=== PATIENT | male | born 1985 | race Caucasian/White ===

== ENCOUNTER 2017-03-09 11:00 | Inpatient (IN) | payer OTHER ==
[~2017-03-09] VITALS: Ht 167.6 cm; Wt 85.0 kg
--- NOTE | ~2017-03-09 | INDIVTXPL2 ---
"PATIENT: LOREE MARVIN | | [facility] UNIT #: [id number] | [address] AGE/SEX: 31 M : 81 | [address] | [place] [phone] ADMIT/REG DATE: 03/09/17 | [facility] | Individualized Treatment Plan DATE: 03/30/17 Problem Statement/Issue Identified: Client is at risk for relapse. Goal: Client will identify relapse triggers and form personal relapse prevention plan. Objectives/Activities to achieve goal: 1. Complete RELAPSE PREVENTION WORKBOOK and process with counselor and in group as assigned. Due Date: 04/06/17 Complete: Incomplete: 2. Process STINKING THINKING with counselor and in group as assigned. Due Date: 04/06/17 Complete: Incomplete: Client Signature Date Counselor Signaure: Date Outcome/Measurement of Progress Towards Goal: Counselor Signature: Date "
--- NOTE | ~2017-03-09 | INDIVTXPL2 ---
"PATIENT: LOREE MARVIN | | [facility] UNIT #: [id number] | [address] AGE/SEX: 31 M : 81 | [address] | [place] [phone] ADMIT/REG DATE: 03/09/17 | ROOM: [facility] LOC: ADTC | ADTC | Individualized Treatment Plan DATE: 03/16/17 Problem Statement/Issue Identified: Client unresolved grief issues contributes to his/her continued drinking and using. Goal: Client needs to address these grief issues to avoid relapse. Objectives/Activities to achieve goal: 1. Complete A LIFE HAS ENDED, LIVING GOES ON and process with counselor, Due Date: 04/01/17 Complete: Incomplete: Client Signature Date Counselor Signaure: Date Outcome/Measurement of Progress Towards Goal: Counselor Signature: Date "
--- NOTE | ~2017-03-09 | CLPRLASSUM ---
"PATIENT: LOREE MARVIN | | [facility] UNIT #: [id number] | [address] AGE/SEX: 31 M : 81 | [address] | [place] [phone] ADMIT/REG DATE: 03/09/17 | ROOM: [facility] LOC: ADTC | ADTC | Client Problem List/Assessment Summary Date: 03/16/17 Problems identified by the client: relapse, legal issue, lack of using support network, control issue and unresolved grief Problems identified by significant others: same Client's Strengths: can accomplish goals, driven, hard worker, caring and love of family Problem List: Code: T Client continued to use alcohol &/or drugs despite ongoing negative consequences. Code: T Client has learned to deny or stuff feelings; needs to learn to identify and process feelings with safe people to acquire the necessary skills to maintain termite exterminator helper sobriety. Code: T Client needs to identify relapse warning signs and develop a plan to deal with them as they arise. Code: T Client unresolved grief issues contributes to his/her continued drinking and using and needs to address these grief issues to avoid relapse. Code Jaeger: T: to be addressed during course of treatment O: problem noted, expected to resolve itself with abstinence--specific tx plan not required R: problem noted, will be referred upon discharge PRIMARY COUNSELOR: Raquel Sidhu"
--- NOTE | ~2017-03-09 | TXPLANREV ---
"PATIENT: LOREE MARVIN | | [facility] UNIT #: [id number] | [address] AGE/SEX: 31 M : 81 | [address] | [place] [phone] ADMIT/REG DATE: 03/09/17 | ROOM: [facility] LOC: ADTC | ADTC | Treatment Plan/Staffing Review Date: 03/30/17 Treatment plan was reviewed and determined appropriate as written: yes, client is working on feelings letters and grief work. Treatment plan was reviewed and the following changes/addition/deletions are necessary: will add relapse prevention work Discharge plans were reviewed and determined appropriate as previously documented: yes, client will participate in outpatient treatment with close monitoring. If client is struggling in outpatient, he will be referred to sober living at that time. Client has been referred to 12 step meetings and sponsorship. Discharge plans were reviewed and determined to be as follows: Other pertinent issues discussed during this staffing review include: Staff Present: Jessy Tapia, Sandeep Hart, Nikunj Quinn, Zora Malhotra, Jia Ogden, Anna Marie Moralez PRIMARY COUNSELOR: ALEXA Burrows, [facility] Client Signature Counselor Signature Date Time "
--- NOTE | ~2017-03-09 | INDIVTXPL2 ---
"PATIENT: LOREE MARVIN | | [facility] UNIT #: [id number] | [address] AGE/SEX: 31 M : 81 | [address] | [place] [address] ADMIT/REG DATE: 03/09/17 | ROOM: [facility] LOC: ADTC | ADTC | Individualized Treatment Plan DATE: 03/16/17 Problem Statement/Issue Identified: Client has learned to deny or stuff feelings which may lead to relapse. Goal: Client needs to learn to identify and process feelings with safe people to acquire the necessary skills to maintain fpc sobriety. Objectives/Activities to achieve goal: 1. Complete SIGNIFICANT EVENT FORMS on a daily basis and process with counselor as needed. Due Date: 04/06/17 Complete: Incomplete: 2. Write feelings letters as assigned and process with counselor and in family group. Due Date: 04/04/17 Complete: Incomplete: 3. Complete FEELINGS workbook and process with counselor and in group as assigned. Due Date: 03/30/17 Complete: Incomplete: Client Signature Date Counselor Signaure: Date Outcome/Measurement of Progress Towards Goal: Counselor Signature: Date "
--- NOTE | ~2017-03-09 | RESCARESUM ---
"PATIENT: LOREE MARVIN | | [facility] UNIT #: [id number] | [address] AGE/SEX: 31 M : 81 | [address] | [place] [phone] ADMIT/REG DATE: 03/09/17 | ROOM: [facility] LOC: ADTC | ADT | Summary of Residential Care Primary Counselor: Raquel LIU,[facility] Date of Admission: 03/09/17 Date of Discharge: 04/06/17 Referral Source: Yanelis Colon, Ring Spinner Jacinta Davis, [facility], [facility], [facility], [facility] Primary Care Provider Prior to Admission: Dr. 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 Jacobs: chemical induced mood disorder, bipolar disorder by history and elevated blood pressure without prior diagnosis of hypertension Discharge Diagnosis: same Goals Achieved: Client verbalized increased awareness of the severity of his substance use disorder. He practiced identifying and expressing feelings appropriately. Client worked on grief issues, He identified relapse triggers and formed personal relapse prevention plan. Continued Obstacles to Sobriety/Relapse Issues: complacency, over-confident, stinking thinking, not following aftercare plan, old people/places/things and/or not dealing with feelings appropriately . Family Issues Addressed: Client participated in family work alone as family did not attend. Y Individual Therapy Y Group Therapy Y Educational Series on Substance Abuse N Parents/Significant Others Attended Family Program N Acute Medical Problems During the Course of Treatment N Transferred to Hospital During the Course of Treatment Y Accepting of Substance Abuse Problem N Non-accepting of Substance Abuse Problem N Required Psychological or Psychiatric Consultation During the Course of Treatment Completed AA Step # 1 During This Level of Care Significant Incidences During Treatment: Client did serve as client technical support associate and was able to provide positive role model for peers. Reason For Discharge: X Completed Residential [place] Goals and Ready For Next Level of Care Continuing Care Plan/Recommendations: PATIENT: LOREE MARVIN | | [facility] UNIT #: [id number] | [address] AGE/SEX: 31 M : 81 | [address] | [place] [address] ADMIT/REG DATE: 03/09/17 | ROOM: [facility] LOC: [facility] | [facility] | Summary of Residential Care Intensive Partial Care X Sponsor Partial Care X AA Meetings/NA Meetings X Outpatient Co-dependency Services Therapeutic Community (IF NEEDED) [address] [place] [facility] Mental Health Therapy Marriage Counseling Other Specific Continuing Care Plan: Client will participate in outpatient treatment at [facility] per his request. He will attend weekly outpatient group and individual sessions as scheduled. Client has been referred to 12 step meetings and sponsorship. If client is unable to remain abstinent in an outpatient setting, he will likely need to be referred to sober living such as [place] or [address] at that time. PRIMARY COUNSELOR: Raquel Sidhu, ALEXA, LADC"
--- NOTE | ~2017-03-09 | INDIVTXPL2 ---
"PATIENT: LOREE MARVIN | | [facility] UNIT #: [id number] | [address] AGE/SEX: 31 M : 81 | [address] | [place] [address] ADMIT/REG DATE: 03/09/17 | ROOM: [facility] LOC: ADTC | ADTC | Individualized Treatment Plan DATE: 03/16/17 Problem Statement/Issue Identified: Client continued to use alcohol &/or drugs despite ongoing negative consequences. Goal: Client will identify self-defeating behaviors in order to make better choices in recovery. Objectives/Activities to achieve goal: 1. Complete HOW TO GET STARTED IN TREATMENT and process with counselor and in group as assigned. Due Date: 03/17/17 Complete: Incomplete: 2. Complete step 1 assignment to identify powerlessness and unmanagability and process with counselor. Share in group 15 examples of how betrayed values (pg. 10) and 10 examples of effects on others (pg. 11). Due Date: 03/24/17 Complete: Incomplete: 3. Read the first 164 pages of ALCOHOLICS ANONYMOUS and process with counselor. Due Date: 04/06/17 Complete: Incomplete: Client Signature Date Counselor Signaure: Date Outcome/Measurement of Progress Towards Goal: Counselor Signature: Date "
--- NOTE | ~2017-03-09 | TXPLANREV ---
"PATIENT: LOREE MARVIN | | [facility] UNIT #: [id number] | [address] AGE/SEX: 31 M : 81 | [address] | [place] [phone] ADMIT/REG DATE: 03/09/17 | ROOM: [facility] LOC: ADTC | ADTC | Treatment Plan/Staffing Review Date: 03/23/17 Treatment plan was reviewed and determined appropriate as written: yes, client is working on step 1, feelings letters and grief. Treatment plan was reviewed and the following changes/addition/deletions are necessary: n/a Discharge plans were reviewed and determined appropriate as previously documented: see below Discharge plans were reviewed and determined to be as follows: Recommendations on intake assessment are for sober living following residential treatment. Client has indicated he bought a house however intake notes that he is renting an apartment. 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 Other pertinent issues discussed during this staffing review include: Staff Present: Padmini Dee, Zora Malhotra, Jia Ogden, Verena Malhotra, Michelle Mooney, Anna Marie Moralez PRIMARY COUNSELOR: ALEXA Burrows, [facility] Client Signature Counselor Signature Date Time "
--- NOTE | 2017-03-09 14:10 | NUR ---
ADMISSION NOTE Rights/Responsibilities: Copy given and explained to client. Signed and accepted by client. Client oriented to physical lay out of the ADTC unit, given Big Book and admission packet. A Torito was assigned. Willam Client is a 31yr old single male. Reffered by probation. Brought to tx by friend. Lives in [place] No family participation at this time. DOC, alcohol, last used 01/26/17, 1/ 750L daily. Allergies: Penicline, Meds: Risperdone. Initial paperwork given and guidelines gone over. Doctor has been notified. Was searched no contraband found.
--- NOTE | 2017-03-09 15:00 | NUR ---
IS 1 HR. Client was oriented to treamtent process. He is working on BPSA. He shared that he knows he needs treatment. Client is reffered by probation. 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 Client shared concerns as he has joint custody of his daughter. He belives daughter's mom or his parents will help to cooridinate visits while he his here. He was allowed to make brief call to brother who will be in town this weekend from out of state to advise him of visiting hours. Client was directed to work on HOW TO GET STARTED IN TREATMENT and the big book after completion of BPSA.
--- NOTE | 2017-03-09 18:35 | NUR ---
Education: 1 hour lecture on self esteem given by counselor
--- NOTE | 2017-03-09 22:52 | NUR ---
Client did beads for rec and attended N.A.Meeting. SE: Being here and getting to know new people
--- NOTE | 2017-03-10 04:01 | NUR ---
Bed note: client was in bed with eyes closed and no distress at all bed checks.
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
--- NOTE | 2017-03-10 11:25 | NUR ---
AM GRP 1.5 HRS, Ratio 1:10/ Clt sat mostly quiet, as it was his first grp. He did hear grp rules.
--- NOTE | 2017-03-10 15:29 | NUR ---
Tech Note: Client participated in Spiritual Enrichment in the morning and went for an outdoor walk after lunch. Client stated that he is working on reading the Big Book.
--- NOTE | 2017-03-10 16:10 | NUR ---
Step ed. 1 hr/ focus was on step one and powerlessness. Each person answered a set of questions on paper and then we discussed out loud. This client participated.
--- NOTE | 2017-03-10 16:17 | NUR ---
Education 1 Hour: Client heard a presentation on cross addiction.
--- NOTE | 2017-03-10 23:14 | NUR ---
TECH NOTE: Client did newcommer bookmarks for REC, participated in guided meditation, and attended AA meeting. SE: all day
--- NOTE | 2017-03-11 01:21 | NUR ---
1 HR EDUCATION: Client watched a video "Say Yes to Life" by Father Festus Henson
--- NOTE | 2017-03-11 04:43 | NUR ---
Bed Note: CLt lay motionless in bed with eyes closed showing no distress at all bed checks.
--- NOTE | 2017-03-11 11:30 | NUR ---
GROUP 1.5 HRS. 1:10 Clients participated in orienting new peers to purpose and rules of group. Discussion included consequences of addiction including the effects on family and loved ones as well as feelings and acceptance.
--- NOTE | 2017-03-11 14:38 | NUR ---
IS .5 HRS. Client discussed visitor's list. He was given step 1 to begin after he completed HOW TO GET STARTED IN TREATMENT. Client reports he is settling in well to treatment. He appears to have positive attitude and was encouraged to continue to be open, honest and willing.
--- NOTE | 2017-03-11 14:48 | NUR ---
PEER REVIEWS 1.5 HRS: Clt participated in peer review process and took a risk to give open and honest feedback.
--- NOTE | 2017-03-11 14:58 | NUR ---
FAMILY CONTACT Spoke with client's girlfriend and obtained her address in order to send out family information. She was advised of visiting hours thise weekend and allowed to speak with client briefly about visitation with his daughter.
--- NOTE | 2017-03-11 15:08 | NUR ---
FAMILY CONTACT Left msg. for client's parents about family work.
--- NOTE | 2017-03-11 16:29 | NUR ---
Tech Note: Clt watched "Relapse" for afternoon video. Clt is finishing up Getting Started and starting Step 1.
--- NOTE | 2017-03-11 22:49 | NUR ---
Tech note: Client watched tv and movies.
--- NOTE | 2017-03-12 05:24 | NUR ---
Bed note : Client was in bed motionless with eyes close at all bed checks.
--- NOTE | 2017-03-12 15:42 | NUR ---
Tech Note: Client attended A.A.Meeting at [facility] and [place] and then helped with the clubhouse cleaning, ate lunch, and listened to a speaker. Client is working on Step1
--- NOTE | 2017-03-12 20:49 | NUR ---
tech note: Client played a game for recreation & attended offsite AA meeting.Client watched tv. SE: AA meeting.
--- NOTE | 2017-03-13 05:26 | NUR ---
Bed note: Client was in bed motionless with eyes closed at all bed checks.
--- NOTE | 2017-03-13 16:21 | NUR ---
TECH NOTE: Client participated in Chapter 5 of Big Book study, attended study time, and watched tv/movies. Had visitors
--- NOTE | 2017-03-13 23:43 | NUR ---
tech note: client attended AA Panel & ALCOHOL STILL OPERATOR meeting. Client participated in Community Clean. SE: visit with brother.
--- NOTE | 2017-03-14 04:40 | NUR ---
Bed Note: Clt lay motionless in bed with eyes closed showing no distress at first and second bed checks. The third bed check clt looked at tech.
--- NOTE | 2017-03-14 11:15 | NUR ---
Tech notes: Client is working on Step 1
--- NOTE | 2017-03-14 11:30 | NUR ---
GROUP 1.5 HR/ 9:1 Clients all heard peers share packets/shame booklet and this client related to having a great support system in AA community but when he wanted to relapse he wouldn't answer door or phone, didn't call before drank. He shared about struggle with sisters . He misses his daughter who is very close to him and the 1 night he gets visits is an AA night, he knows he needs to get interlock on his car so he can drive to out of town meetings.
--- NOTE | 2017-03-14 15:41 | NUR ---
Education note: Client attended speaker for education, Deonna on Tobacco
--- NOTE | 2017-03-14 16:00 | NUR ---
Recovery 101 1 hr/ Clients all participated in reading, highlighting and discussing the Big Book on areas about honest, acceptance, living in problem vs living in solution, resentments, 1/2 measures, and the 12 promises.
--- NOTE | 2017-03-14 22:30 | NUR ---
Tech note : Client went on a walk for rec and attended an onsite NA meeting. SE; All day
--- NOTE | 2017-03-15 04:17 | NUR ---
Bed note: Client was in bed with eyes closed and no distress at all bed checks.
--- NOTE | 2017-03-15 09:53 | NUR ---
IS 1 HR. Client processed from his HOW TO GET STARTED IN TREATMENT. He shared that there have been 3 deaths of loved ones in last 6 mos. including his 37 yr. old sister, a mentor and his daughter's grandma. Client reports 3 of his 6 failed breath tests on probation were after those deaths. He also shared about his mom. He reports mom was drug addict and parents when he was 7 and dad got custody of the 3 kids. Client's sister had a different mom but he notes that his mom also approx. age 37-38 with similar circumstances. Client indicates he has issues with mom and shared about the last time that he spoke with her when he was released from [employer]. Client was given A LIFE HAS ENDED, LIVING GOES ON and instructed to do for all 4 deaths. He will also begin feelings letters to dad, brother, S/O and 4 yr. old daughter. He appears positive and willing at this time.
--- NOTE | 2017-03-15 09:59 | NUR ---
Returned call to client's PO, Yanelis Colon, and left voicemail.
--- NOTE | 2017-03-15 11:30 | NUR ---
GROUP 1.5 HRS. 1:9 Clients participated in orienting new peer to purpose and rules. Discussion included discharge plans and the importance of aftercare plan. Client processed HOW TO GET STARTED IN TREATMENT assignment including his chemical history and the consequences as well as his commitment to recovery.
--- NOTE | 2017-03-15 12:54 | NUR ---
FAMILY CONTACT Left msg. for client's S/O. Spoke with client's dad who advised he will look at his schedule and hopefully attend. Dad reports that in addition to client's mom having drug addiction, he also drinks and client's grandfather of cirrhosis of the liver due to his drinking.
--- NOTE | 2017-03-15 13:24 | NUR ---
Tech Note: Client participated in an outdoor walk in the afternoon. Client followed programming.
--- NOTE | 2017-03-15 13:36 | NUR ---
Education One Hour: Client heard a presentation on Sexually Transmitted Disease.
--- NOTE | 2017-03-15 16:04 | NUR ---
Relapse Prevention Education, 1.0 hours, Client attended and actively participated in relapse prevention education which focused on a Relapse Prevention Quiz and discussion over the answers.
--- NOTE | 2017-03-15 20:30 | NUR ---
education note: 1 hour lecture by counselor on" what yan are you willing to pay"
--- NOTE | 2017-03-15 21:17 | NUR ---
med note: client complained of head ache pain level 7.motrin given
--- NOTE | 2017-03-15 22:53 | NUR ---
Tech note: Client attended the Alumni meeting, participated in guided meditation and attended an onsite AA meeting. SE; Meeting with counselor
--- NOTE | 2017-03-16 04:57 | NUR ---
Bed note: Client was in bed with eyes closed and motionless at all bed checks
--- NOTE | 2017-03-16 10:40 | NUR ---
Tech notes: Client is working on Grief pkt
--- NOTE | 2017-03-16 11:30 | NUR ---
GROUP 1.5 HRS. 1:11 Discussion included the need for appropriate boundaries on the unit and working towards recovery/new behaviors, not addiction/old behaviors. Clients also discussed the effects on addiction as peers had parents that were addicts and then became the parent who addiction effected their own kids. This client questioned why there is only one good feeling and discussed behaviors are what are good or bad.
--- NOTE | 2017-03-16 12:37 | NUR ---
Education note: Client had education by [facility]
--- NOTE | 2017-03-16 17:06 | NUR ---
IS 1 HR. Client participated in forming individualized treatment plans. He processed the rest of his HOW TO GET STARTED IN TREATMENT and discussed assertiveness, self-centeredness and feelings wenceslao. fear. Client reports the medication he is taking works for him but he was concerned about taking medication. He shared family history of mental health issues including bi-polar and schizophrenia. Client shared that his ex (daughter's mom) identified pattern of not sleeping and being anxious prior to each drinking binge. Client stated he was unaware of this pattern but identified himself as dry drunk prior to treatment. He admits that daughter was effected and would ask why he was mad or sad.
--- NOTE | 2017-03-16 17:21 | NUR ---
SPIRITUAL EDUCATION 1 HR. Todays topics were orienting newcomers, and taking a look at Wing Wong's 5 SECRETS TO SUCCESS which include a look at the miracles of the human body as blessings.
--- NOTE | 2017-03-16 20:57 | NUR ---
education: 1 hour video on unresolved anger and group discussion with counselor
--- NOTE | 2017-03-16 22:13 | NUR ---
Tech note: Client worked on beaded project and attended an onsite NA meeting. SE; Meeting with counselor
--- NOTE | 2017-03-17 04:03 | NUR ---
Bed note: Client was in bed with eyes closed and no distress at all bed checks.
--- NOTE | 2017-03-17 10:30 | NUR ---
Tech Note: Client participated in Spiritual Enrichment. Client stated that he is working on "Feelings," "Grief," and writing Feelings Letters.
--- NOTE | 2017-03-17 12:56 | NUR ---
Group 1.5 Hr Ratio 1:10/Topics today were a relapse prevention, a feelings letter, a getting started and two step one's. Client shared what he could relate to about triggers they had.
--- NOTE | 2017-03-17 13:40 | NUR ---
Education 1 Hour: Client heard a presentation from a member of the recovery community who shared his experience, strength and hope.
--- NOTE | 2017-03-17 16:30 | NUR ---
step education 1 hr/ Focus was on step 2, handed out some questions they completed on paper and then opened it up for discussion. This client participated.
--- NOTE | 2017-03-17 23:49 | NUR ---
Tech Note: Client attended Guided Meditation and A.A.Meeting. SE: A.A.Meeting
--- NOTE | 2017-03-18 04:26 | NUR ---
Eduction: 1 Hour. Client attended "Unresolved Anger" video & discussion presented by staff.
--- NOTE | 2017-03-18 11:57 | NUR ---
Group 1.5 Hr Ratio 1:9/Topics today were two getting started packets, forgiveness and dealing with bad childhoods. Client shared how he could relate and he wishes he could tell his mom bluntly how he feels but is appeared he wants to hurt her more than forgive her.
--- NOTE | 2017-03-18 13:00 | NUR ---
PEER REVIEWS 1.5 HRS: Clt participated in peer review process and was able to give open and honest feedback to those receiving a review.
--- NOTE | 2017-03-18 16:24 | NUR ---
Tech Note: Client participated in group walk for exercise and watched "Recovery Issues Part 3" for afternoon video. Client is working on Feelings Letters.
--- NOTE | 2017-03-18 22:50 | NUR ---
TECH NOTE: Client participated in reading guidelines and watched tv/movies. SE: that it's Tuesday
--- NOTE | 2017-03-19 04:12 | NUR ---
Bed Note: Clt lay motionless in bed with eyes closed showing no distress at all bed checks.
--- NOTE | 2017-03-19 16:05 | NUR ---
Tech Note: Client attended NA Panel and is working on Feelings Letters and Grief Packet.
--- NOTE | 2017-03-19 20:28 | NUR ---
Tech note: Clt played a game for recreation and attended offsite AA mtg. Watched tv and used phone. SE was phone calls
--- NOTE | 2017-03-20 04:38 | NUR ---
Bed Note: Clt lay motionless in bed with eyes closed showing no distress at all bed checks.
--- NOTE | 2017-03-20 15:55 | NUR ---
Tech Note: Client participated in Big Book Study. Client stated that he is working on, "Grief" and writing Feelings Letters. CLient received a visitor.
--- NOTE | 2017-03-20 22:50 | NUR ---
Tech Note: Clt attended AA panel, [employer] SW[employer]SEM[employer]ER mtg, used phone and watched tv. SE was visit
--- NOTE | 2017-03-21 04:40 | NUR ---
Bed Note: Clt lay motionless in bed with eyes closed showing no distress at all bed checks.
--- NOTE | 2017-03-21 10:17 | NUR ---
Tech notes: Client is working on Grief Pkt and Fl's
--- NOTE | 2017-03-21 11:30 | NUR ---
Morning Group, 11/23 ration, 1.5 hours, Client attended and actively participated in group discussion. Client talked about this being a selfish program but then were asked to help others out. He was frustrated with another client and his arrogance.
--- NOTE | 2017-03-21 13:31 | NUR ---
Education: Client attended education by Padmini on Infection prevention.
--- NOTE | 2017-03-21 16:00 | NUR ---
Recovery 101 1 hr/ Clients all were asked to share what they worked on in treatment or past treatments that really helped them and/or their experience with working an AA/NA program of recovery-what went well. This client was attentive, got names to call & great sponsor in past. Now he wants to learn to be himself.
--- NOTE | 2017-03-21 18:12 | NUR ---
Education: 1 Hour. Client attended "Adult Children of Alcoholics" lecture presented by staff.
--- NOTE | 2017-03-21 23:36 | NUR ---
tech note: Client played a game for recreation & chaired onsite NA meeting. Client was redirected for his language. SE: chairing the NA meeting.
--- NOTE | 2017-03-22 04:32 | NUR ---
BED NOTE: Client was in bed, motionless with eyes closed all three bed checks.
--- NOTE | 2017-03-22 10:00 | NUR ---
IS 1 HR. Client shared about chairing the meeting last night. He is confronted on over-confidence as he voices his plan to stay sober and has had little or no cravings while here. He identified that this is a safe place. He processed from his grief packet and processed the letter to his sister who the end of November of this year. He continues to work on letters to his mentor and his daughter's grandma. Client is also working on FEELINGS workbook and related to the self-talk exercise. y
--- NOTE | 2017-03-22 11:30 | NUR ---
GROUP 1.5 HRS. 1:9 Client participated in orienting new peer to purpose and rules of group. Group discussion included anger and frustration at peer's disrespect and immaturity. The peer was in the other group so clients were redirected at what they can do to be a part of the solution, not part of the problem. This client shared that he handled situation better with peer than he would have in the past. He also owned that he may have been sarastic with that peer about him being late again. Discussed assertive ways to confront peers with care.
--- NOTE | 2017-03-22 15:30 | NUR ---
FAMILY CONTACT Spoke with client's dad again to clarify as he told client he would attend on Tuesday. Previously discussed family work scheduled and reminded him of such. He is uncertain if they will be able to attend on a or a Tuesday.
--- NOTE | 2017-03-22 16:00 | NUR ---
Relapse Prevention, 1.0 hours, Client attended and actively participated in relapse prevention education which focused on internal and external triggers.
--- NOTE | 2017-03-22 16:38 | NUR ---
Tech Note: Client participated in Nutritional Services presentation and is working on Feeling Letters and a Grief Packet.
--- NOTE | 2017-03-22 22:43 | NUR ---
Education: 1 hour lecture given by counselor on co-dependency
--- NOTE | 2017-03-22 22:53 | NUR ---
Tech note: clients played catchphrase for rec, participated in guided meditation and attended AA meeting SE:waking up
--- NOTE | 2017-03-23 04:37 | NUR ---
bed note: client was in bed with eyes closed and motionless at all bed checks.
--- NOTE | 2017-03-23 09:54 | NUR ---
Tech notes: Client is working on Fl's
--- NOTE | 2017-03-23 11:30 | NUR ---
GROUP 1.5 HRS. 1:12 Clients participated in orienting new peer to purpose and rules of group. Discussion included healthy coping skills to deal with stress and feelings. This client processed from his step 1 assignment identifying how he betrayed his values in his addiction. Many of his values involved effect on others as well. He did a good job of owning his behaviors.
--- NOTE | 2017-03-23 13:15 | NUR ---
Education note: Client attended educational speaker Colin Magana
--- NOTE | 2017-03-23 15:00 | NUR ---
IS 1 HR. Client was confronted on lack of feelings on SEF yesterday when he had lots of feelings about an incident with peer in the AM. Client stated he thinks his feelings don't matter because he did not see anything happen to peer following that incident. He was advised that due to confidentiality he will not know everything about peers and their treatment issues. He was advised of recommendations from intake assessment that stated "sober living environment". Client became very upset and awfulized the effects of not returing home. He was encouraged to journal feelings and use God box. Message left with his PO to discuss intake recommendations as client was not aware of sober living.
--- NOTE | 2017-03-23 15:49 | NUR ---
CASE MANAGEMENT: Spoke with Jacinta Lundberg who completed intake assessment. She clarified that she did not recommend sober living house but sober living environment and is willing to work with him in outpatient. She did express concerns that it is suspected that client was drinking on daily basis and drinking with his boss.
--- NOTE | 2017-03-23 16:00 | NUR ---
COUNSELOR NOTE Client was advised of contact with intake assessment and the clarification of the recommendations as well as her concerns that client is drinking more frequently and drinking with his boss, which he denies. He was very relieved that outpatient is acceptable recommendation.
--- NOTE | 2017-03-23 17:31 | NUR ---
SPIRITUAL EDUCATION 1 HR. Today we used music to invoke discussion, symbolize how it can be either positive spirituality or negative spirituality, and discussed the feelings. We used one song that depicted addiction, one that talked about recovery, and since we are close to Mother's Day, one that depicted addiction in parents and forgiveness.
--- NOTE | 2017-03-23 18:18 | NUR ---
Education: 1 Hour. Client attended "Boudaries" lecture given by staff.
--- NOTE | 2017-03-23 20:06 | NUR ---
Relapse Prevention, 1.0 hours, Client attended and actively participated in relapse prevention education which focused on internal and external triggers.
--- NOTE | 2017-03-23 22:57 | NUR ---
Tech Note: Client played a game for rec, and attended The on unit N.A.Meeting. SE: Counselor session
--- NOTE | 2017-03-24 04:30 | NUR ---
Bed Note: Client was in bed with eyes closed and motionless at all bed checks.
--- NOTE | 2017-03-24 12:42 | NUR ---
Group 1.5 Hr Ratio 1:9/Topics today were a collage, two step ones, a getting startred and feelings letters. Client was very quiet but did appear to bepaying attention.
--- NOTE | 2017-03-24 15:45 | NUR ---
step education 1 hr/ Focus was on step 3 of the 12 steps Made a decision to turn our will and lives over to God. Each person were given questions to answer on paper and then to share and discuss. This client participated and commented that he really liked this exercise and how unique everyones answers were.
--- NOTE | 2017-03-24 18:17 | NUR ---
Education 1HR: Clt watched video called "Predator part 1" by Nael Reeves with staff present.
--- NOTE | 2017-03-24 23:11 | NUR ---
Tech Note: Client took a walk for rec and attended the A.A.Meeting. SE: 60 Day chip
--- NOTE | 2017-03-24 23:24 | NUR ---
1:00 pm. Education Note: Client watched video "Inside the Addictive Personality"
--- NOTE | 2017-03-25 04:09 | NUR ---
Bed Note: Client was in bed and motionless at all bed checks.
--- NOTE | 2017-03-25 11:30 | NUR ---
Group 1.5 hr/ 11:1 Clients all involved in discussions about addiction and recovery. THis client was very involved and gave good feedback, related well.
--- NOTE | 2017-03-25 14:36 | NUR ---
PEER REVIEWS 1.5 HRS: Clt participated in peer review process and was able to give open and honest feedback to those receiving a review. Client also received his own peer review and heard he jokes a lot, glorifies a lot, hides with humor, bottles up stuff, is frustrated and angry, lives behind bull shit, and does not deal with his issues. Client agreed and said he can change but it is going to take some time.
--- NOTE | 2017-03-25 15:41 | NUR ---
Tech Note: Client participated in group walk and watched "Marijuana" by Nael Reeves. Assignment being worked on is Feelings Letters.
--- NOTE | 2017-03-25 23:23 | NUR ---
Tech note: Client played games and watched movies. Client walked to an offsite AA meeting.
--- NOTE | 2017-03-26 04:02 | NUR ---
Bed note: Client was in bed with eyes closed and no distress at all bed checks
--- NOTE | 2017-03-26 16:53 | NUR ---
Tech Note: Client went to A.A.Meeting at [address]. Also had visit and went on a walk Client is working on ME's
--- NOTE | 2017-03-26 22:14 | NUR ---
Tech note: Client's were just starting to grill around 6pm so we did not have rec this evening. Client walked to an offsite AA meeting, played games and watched movies. SE; Family
--- NOTE | 2017-03-26 22:30 | NUR ---
tech note: client c/o level 7 headache @ 4562,motrin 400 mg was given.
--- NOTE | 2017-03-27 04:46 | NUR ---
tech note: client was motionless in no distress at all bed checks.
--- NOTE | 2017-03-27 17:41 | NUR ---
Tech Note: Client participated in Big Book study. Client stated that he is working on, "Feelings" and writing feelings letters. Client went on an optional outdoor walk.
--- NOTE | 2017-03-27 23:31 | NUR ---
tech note: Client participated in community clean & attended CHECK AND TRANSFER BEADER meeting.Client talked on the phone. SE: STEPHANY Study.
--- NOTE | 2017-03-28 04:25 | NUR ---
tech note: client was motionless in no distress at all bed checks.
--- NOTE | 2017-03-28 13:19 | NUR ---
Experiential Group 1.5 hr/ Clients all participated in looking at family dynamics and feelings through sculpturing and participated with feedback, relating and/or role-playing. This client volunteered to do his family at age 13 before started using. He was strongly committed to Wrestling so never used up to age 14, graduated HS, and loved wrestling plus taught his younger brother everything he knew. Client admired and respected his father, mom left them when he was age 5 as baby brother was born with drugs in his system and mom refused to get clean/but dad was clean and got to keep and raise his kids. Dad needed help and client took over many household responsibilities. His older sister was from another mother and didn't move in with them until she was 14, so not as close but got along, did her homework for her for money. He doesn't report any unresolved feelings with his mother, she , she was never there, she lived close to his [facility], [place] [employer] [facility] and said she would come but no showed (he was there 7 days). Client openly admits it hurt him that mom was never there for him. He wrote vent letter to his mom, he refers to her as toxic, while at a 1 year treatment program and burned it. Client says his biggest issue is he saw his dad grieve all his life over the marital breakup with his mom and he said commitment of marriage scares him, he wants to make sure a woman is 100% committed. He said due to his upbringing he has great work ethics and keeps a clean house. He does regret that his biomom never met her only grandchild. He said a lightbulb went off with sculpture seeing that he did hurt his dad and step-mom and brother with his alcoholism which he was too selfish to see before.
--- NOTE | 2017-03-28 16:14 | NUR ---
RECOVERY 101 1 HR/ Clients all filled out 30 question sheet on consequences of their use, looking at every chemical they have used to help see powerlessness and not minimize any chemicals they have abused. Clients learned about early stages and definition of addiction. This client was involved and shared openly.
--- NOTE | 2017-03-28 17:49 | NUR ---
Tech Note: Client went for an outdoor walk in the afternoon. Client stated that he is working on, "Feelings" and writing feelings letters.
--- NOTE | 2017-03-28 20:49 | NUR ---
Education 1 HR: Clt listened to lecture given by counselor on communication.
--- NOTE | 2017-03-28 23:13 | NUR ---
Client played a game for rec and attended on site N.A.Meeting SE: Tamy
--- NOTE | 2017-03-29 04:58 | NUR ---
Bed Note: Client was in bed and motionless at all bed checks
--- NOTE | 2017-03-29 09:05 | NUR ---
IS 1 HR. Client reports he had a good weekend. Discussed more about discharge plan and he indicates he wants to come to [facility] for mtgs. and possibly group. Client processed grief letters to his mentor and his daughter's grandma. He did a good job and shed a few tears. Client admits he has put off the letter to his mom. Discussed how grief is different as the other 3 he processed were positive relationships and his relationship with mom was not good. Discussed how he can now see that he and his mom had the same disease. Client stated he does not think his dad and stepmom will be able to come to family so he will attend alone this Thurs. and Mon. prior to discharge.
--- NOTE | 2017-03-29 11:41 | NUR ---
GROUP 1.5 HRS. 1:11 Client participated in orienting new peer to purpose and rules of group. Group discussion included the progression of the addiction and the effects on family and lives including suicide attempts. Peer processed goodbye letter to addiction and discussed the need to end the relationship. This client offered personal and insightful feedback.
--- NOTE | 2017-03-29 15:18 | NUR ---
Tech Note: Client joined group for afternoon walk, listened to speaker from the [facility] [place] and is working on Grievance Pkt and Feelings Letters.
--- NOTE | 2017-03-29 16:06 | NUR ---
Tech Note: Client attended Relapse Prevention education with Anna Marie.
--- NOTE | 2017-03-29 19:55 | NUR ---
Education: 1 hour lecture on STD/AID/HIV gijacoby by [facility].
--- NOTE | 2017-03-29 22:35 | NUR ---
Tech note : Client worked on [employer] crafts and get well cards. Client participated in guided meditation and went to an onsite AA meeting.
--- NOTE | 2017-03-30 04:16 | NUR ---
Bed note: Client was in bed with eyes closed and no distress at all bed checks
--- NOTE | 2017-03-30 11:15 | NUR ---
Tech Note: Client is working on a [place] Packet.
--- NOTE | 2017-03-30 11:30 | NUR ---
GROUP 1.5 HRS. 1:10 Group discussion included issues and conflict between peers on the unit. Peers also processed HOW TO GET STARTED IN TREATMENT and step 1 assignment identifying how values are betrayed in addiction. This client was active in group and offered appropriate feedback.
--- NOTE | 2017-03-30 13:19 | NUR ---
Tech Note: Client walked in the hallways for afternoon exercise.
--- NOTE | 2017-03-30 13:23 | NUR ---
Education One Hour: Client heard from members of the recovery community, who shared their experience, strength and hope.
--- NOTE | 2017-03-30 17:24 | NUR ---
SPIRITUAL EDUCATION 1 HR. Topics today were orienting newcomers and then broke into groups and did presentations on their sections from TOWARDS SPIRITUALITY.
--- NOTE | 2017-03-30 18:47 | NUR ---
Education: 1 hour lecture given by counselor on "Disease concept".
--- NOTE | 2017-03-30 22:32 | NUR ---
Tech note: Client played catch phrase for rec and attended an onsite NA meeting. SE: NA
--- NOTE | 2017-03-31 05:00 | NUR ---
Bed note: Client was in bed with eyes closed and no distress at all bed checks.
--- NOTE | 2017-03-31 10:46 | NUR ---
Tech Note; Client participated in light stretching for morning exercise. Client stated that he is working on, "Feelings" and "Relapse Prevention."
--- NOTE | 2017-03-31 11:30 | NUR ---
AM GRP 1.5 HRS, Ratio 1:12/ Clt participated in grp discussion on various topics, including having fun in recovery, how addiction hurts everyone around them, and what to do just to stay in recovery. This clt participated, and stated he knows this is his last time at trying to make recovery work. He stated drinking has taken over so many times, next time it will probably kill him.
--- NOTE | 2017-03-31 16:21 | NUR ---
Education 1 Hour: Client heard from two members of the recovery community, who shared their experience strength and hope.
--- NOTE | 2017-03-31 16:48 | NUR ---
FAMILY EDUCATION 3 HRS. Client attended alone and took part in the discussion on the disease concept. Client shared chemical history and the consequences.
--- NOTE | 2017-03-31 20:25 | NUR ---
Education: 1 Hour. Client attended Andres Verma "Unhealthy Families" video.
--- NOTE | 2017-03-31 23:01 | NUR ---
Client went on a walk for rec, participated in guided meditation, and attended the on unit A.A.Meeting. SE: Family
--- NOTE | 2017-04-01 05:36 | NUR ---
tech note: client was motionless in no distress at all bed checks.
--- NOTE | 2017-04-01 14:49 | NUR ---
Tech Note: Client joined our group walk for exercise. Watched video titled "Sound of Silence" and is working on Relapse Prevention, Raymundo Thinkin and Feelings Letters.
--- NOTE | 2017-04-01 15:42 | NUR ---
PEER REVIEWS 1.25 HRS: Clt participated in peer reviews and took a risk to give open and honest feedback to those receiving a review.
--- NOTE | 2017-04-01 20:30 | NUR ---
TECH NOTE: Client participated in reading of guidelines, watched TV/movies and attended optional offsite AA meeting SE: last weekend here
--- NOTE | 2017-04-02 04:32 | NUR ---
BED NOTE: Client was in bed, motionless with eyes closed all bed checks.
--- NOTE | 2017-04-02 16:20 | NUR ---
Tech Note: Client is working on Relapse Prevention.
--- NOTE | 2017-04-02 20:25 | NUR ---
Tech note: Clt played a game for recreation and attended offsite AA mtg. Clt played cards, used phone and watched tv. SE was lucy
--- NOTE | 2017-04-03 04:26 | NUR ---
BED NOTE: Client was in bed motionless with eyes closed all three bed checks.
--- NOTE | 2017-04-03 15:54 | NUR ---
Tech Note: Client participated in Big Book study. Client stated that he is working on, "Relapse Prevention" and writing feelings letters.
--- NOTE | 2017-04-03 23:06 | NUR ---
Tech Note: Client attended the A.A.Panel with Naman Hart SE: Big Book Study
--- NOTE | 2017-04-04 04:38 | NUR ---
Bed Note: Client was laying in bed and motionless at all bed checks.
--- NOTE | 2017-04-04 09:49 | NUR ---
Tech note: Client is working on [employer]
--- NOTE | 2017-04-04 11:30 | NUR ---
PEER REVIEW 1.5 hr/ Clients had 4 peer reviews and this client gave good feedback.
--- NOTE | 2017-04-04 12:56 | NUR ---
Education Note: Clients attended speaker for education Kit J.
--- NOTE | 2017-04-04 18:20 | NUR ---
Education: 1 Hour. Client attended "Feelings" lecture presented by staff.
--- NOTE | 2017-04-04 21:00 | NUR ---
FAMILY EDUCATION 3 HRS., FAMILY GROUP 2 HRS. 1:8 Client attended alone and took part in the discussion on the family roles, codependency and detachment. Client related to family hero role while peers see him as scapegoat and mascot. He was attentive as peers and families processed feelings letters and thanked them for being open. He also admitted how his alcoholism effected his 4 yr. old daughter.
--- NOTE | 2017-04-04 23:19 | NUR ---
tech note: client attended Family Session. Client was non-compliant when tech asked clients not to use inappropriate language during the client meeting. SE: Family.
--- NOTE | 2017-04-05 04:46 | NUR ---
tech note: client was motionless in no distress at all bed checks.
--- NOTE | 2017-04-05 12:48 | NUR ---
GROUP 1.5 HRS. 1:11 Group discussion included cravings and grief of old lifestyle as well as feelings letters/effects on kids and betraying values. This client offered to share his goodbye letter to his addiction (specifically vodka) which he personified as a woman. Client bragged that he spent a lot of time on it and did a good job. Client was also full of advise and was redirected as he was dominating the group with his good advise.
--- NOTE | 2017-04-05 15:45 | NUR ---
Relapse Prevention, 1.0 hours, Client attended and actively participated in relapse prevention education which focused on compulsive behaviors and relapse.
--- NOTE | 2017-04-05 16:10 | NUR ---
Tech Note: Client watched Part 2 of Predator by Nael Reeves and had Relapse Prevention for 3:00 education. Assignment being worked on: Big Book.
--- NOTE | 2017-04-05 16:24 | NUR ---
Education Note: Client attended Relapse Prevention presented by counselor Verena.
--- NOTE | 2017-04-05 20:18 | NUR ---
Education: 1 hour lecture given by counselor on relapse.
--- NOTE | 2017-04-05 20:26 | NUR ---
tech note: Client went for walk for rec, participated in guided meditation and attended AA meeting
--- NOTE | 2017-04-05 23:37 | NUR ---
Tech Note: Client went on a walk for rec and attended the on unit A.A.Meeting. Client participated in Guided Meditation at 1930. SE: [place]
--- NOTE | 2017-04-06 04:57 | NUR ---
Bed note: client was in bed with eyes closed and no distress at all bed checks.
--- NOTE | 2017-04-06 10:01 | NUR ---
DISCHARGE NOTE Client left tx with a friend going home, all personal belongings were sent with. Discharge instuctions gone over and a copy given.
--- NOTE | 2017-04-07 10:11 | NUR ---
Left voicemail for both client's PO and outpatient therapist Jacinta Davis in regards to client's aftercare plan.
--- NOTE | 2017-05-18 12:37 | DS ---
ADMIT: 03/09/2017 RM/LOC: [id number] MR#: [id number] [id number] [place] MARVIN [address] [address] General Discharge Summary SEX: M AGE: 31 : 1985 ADMISSION DATE: 03/09/2017 DISCHARGE DATE: 04/06/2017 ADMITTING DIAGNOSIS: As per history and physical. FINAL DIAGNOSES: 1. Alcohol use disorder, severe. 2. Cannabis use disorder, mild. 3. Methamphetamine/stimulant use disorder, severe, in full sustained remission. 4. Tobacco use disorder. 5. Chemical-induced mood disorder. 6. Bipolar disorder by history. 7. Elevated blood pressure without prior diagnosis of hypertension. COMPLICATIONS: None. OPERATIONS: None. CLINICAL HISTORY: The patient is a 31-year-old white male, who is admitted to the residential care program at the [facility] for treatment of his alcohol use disorder, as well as past history of methamphetamine use disorder, and cannabis use disorder. For details of his pattern of usage and problems associated with his ongoing alcohol use disorder, please see the clinical history portion of the dictated history and physical. Please also see dictated history and physical for past medical history and pertinent findings on physical exam. LABORATORY AND X-RAY SUMMARY FROM THIS ADMISSION: None indicated, none performed. HOSPITAL COURSE: The patient was admitted and assigned to his primary counselor, Raquel Sidhu. He remained in the treatment program from 03/09/2017 through 04/06/2017. While in treatment, he participated in individual therapy and group therapy. He was also given the educational series on substance abuse and worked on many of these assignments during his stay at the treatment program. He attended the family education and family group sessions alone, none of his family participated. While in treatment, he was accepting of his substance abuse problem and worked well with the staff in both individual and group settings. He was able to complete step 1 of AA during this level of care. While in treatment, he verbalized increased awareness of the severity of his substance abuse, and he was able to recognize his powerlessness over alcohol and drugs. He worked on past grief issues. He identified relapse triggers and worked on performing his own personal relapse prevention plan identifying potential obstacles to his sobriety. The patient had a positive attitude towards treatment and was elected to be client service associate during his last week in treatment. He was able to provide a positive role model for his peers in treatment. He ultimately completed his residential treatment goals and was felt to be ready for the next level of care. He is ADMIT: 03/09/2017 RM/LOC: A.508 [facility] MR#: [id number] [id number] LOREE MARVIN [address] [place] [address] General Discharge Summary SEX: M AGE: 31 : 1985 going to continue outpatient aftercare here at the [facility]. He will do weekly outpatient group as well as weekly individual sessions. He is going to attend AA and get an AA sponsor and try to attend 3 to 5 AA meetings per week. If he is unable to remain clean and sober in an outpatient setting, he will then be referred to a sober living community such as a custodial house or 3/[address] house. His condition at discharge was improved. MEDICATIONS: His medications at dismissal included: 1. Risperdal 1 mg at bedtime. 2. Multivitamin 1 daily. 3. Thiamine 100 mg one daily. The patient is going to follow up with his personal physician within one month on his discharge medications. Hugo Jacobs MD/ neyda JOB #: [id number] CC: Hugo Jacobs MD, Attending Physician Moe Cherry MD, Family Physician
== END 2017-04-06 10:02 | disposition home or self-care (01) | DRG 895 ==
LOC: ADTC 11:00
PROVIDERS: ADMIT Family Medicine
DX: F10.20 Alcohol dependence, uncomplicated (principal); F19.24 Other psychoactive substance dependence with psychoactive substance-induced mood disorder; F12.20 Cannabis dependence, uncomplicated; F15.21 Other stimulant dependence, in remission; F17.210 Nicotine dependence, cigarettes, uncomplicated; F31.9 Bipolar disorder, unspecified; R03.0 Elevated blood-pressure reading, without diagnosis of hypertension; Z65.3 Problems related to other legal circumstances; Z63.72 Alcoholism and drug addiction in family